=== PATIENT | female | born 1985 | race Two or more races ===

== ENCOUNTER → 2016-04-02 | Outpatient (CLI) | payer MEDICAID ==
[2016-04-02 09:07] LABS: Basophils # (auto) 0 uL; Basophils % (auto) 0.2 % (0.0-2.0); Eosinophils # (auto) 0.1 uL; Eosinophils % (auto) 0.5 % (0.0-7.0); Hematocrit 35.1 % (36.0-46.0); Hemoglobin 11.1 g/dL (12.2-16.2); Lymphocytes # (auto) 2.6 uL; Lymphocytes % (auto) 23.5 % (10.0-50.0); Mean Corpuscular Hemoglobin 27.8 pg (28.0-32.0); Mean Corpuscular Hgb Conc. 31.8 g/dL (32.0-36.0); Mean Corpuscular Volume 87.6 fL (80.0-100.0); Mean Platelet Volume 7.3 fL (7.4-10.4); Monocytes # (auto) 0.4 uL; Monocytes % (auto) 3.9 % (0.0-12.0); Neutrophils # (auto) 7.9 uL; Neutrophils % (auto) 71.9 % (37.0-80.0); Platelet Count (auto) 388 10^3/uL (140-450); Red Cell Distribution Width 16.1 % (11.6-16.0); White Blood Cell 11.1 10^3/uL (4.4-10.8)
== END | disposition home or self-care (01) ==
LOC: LAB 08:35
PROVIDERS: ATTEND Specialist
DX: Z34.80 Encounter for supervision of other normal pregnancy, unspecified trimester (principal); O99.810 Abnormal glucose complicating pregnancy; Z11.3 Encounter for screening for infections with a predominantly sexual mode of transmission; Z31.430 Encounter of female for testing for genetic disease carrier status for procreative management
CPT/HCPCS: 36415; 82951; 83036; 85025; 86703; 86762; 86850; 86900; 86901; 87086; 87340; G0434

== ENCOUNTER 2016-07-05 14:10 | Inpatient (IN) | payer MEDICAID ==
[~2016-07-05] VITALS: Ht 160 cm; Wt 71.7 kg
[2016-07-05] MEDS ORDERED: LACT. RINGERS/OXYTOCIN 20UNITS 1,000 ML IV SCH (15:40)
[2016-07-05] MEDS ORDERED: WITCH HAZEL-GLYCERIN PAD TOP PRN (15:45)
[2016-07-05] MEDS ORDERED: PHISODERM TOP SOLN 240ML BTL TOP PRN (15:45)
[2016-07-05] MEDS ORDERED: LIDOCAINE 2%HCL (LOCAL ANESTH.) INJ 20ML MDV IJ ONE (15:45)
[2016-07-05] MEDS ORDERED: METHYLERGONOVINE MALEATE 0.2 MG/ML AMP IM PRN (15:45)
[2016-07-05] MEDS ORDERED: NALBUPHINE HCL 10 MG/1ml INJECTION IV PRN (15:45)
[2016-07-05] MEDS ORDERED: DERMOPLAST 60ML BOTTLE TOP PRN (15:45)
[2016-07-05] MEDS ORDERED: CARBOPROST TROMETHAMINE 250 MCG/1ML VIAL IM PRN (15:45)
[2016-07-05] MEDS: LACTATED RINGER'S 1,000 ML IV SCH ×2 (16:15→23:40)
[2016-07-05 16:20] LABS: Basophils # (auto) 0 uL; Basophils % (auto) 0.3 % (0.0-2.0); Eosinophils # (auto) 0.1 uL; Eosinophils % (auto) 0.6 % (0.0-7.0); Hematocrit 35.1 % (36.0-46.0); Hemoglobin 11.6 g/dL (12.2-16.2); Lymphocytes # (auto) 2.2 uL; Lymphocytes % (auto) 18.4 % (10.0-50.0); Mean Corpuscular Hgb Conc. 33.1 g/dL (32.0-36.0); Mean Corpuscular Volume 84.8 fL (80.0-100.0); Mean Platelet Volume 7.4 fL (7.4-10.4); Monocytes # (auto) 0.5 uL; Monocytes % (auto) 4.4 % (0.0-12.0); Neutrophils # (auto) 9.3 uL; Neutrophils % (auto) 76.3 % (37.0-80.0); Platelet Count (auto) 366 10^3/uL (140-450); Red Cell Distribution Width 16.2 % (11.6-16.0); White Blood Cell 12.2 10^3/uL (4.4-10.8)
[2016-07-05 16:52] LABS: Albumin 2.6 g/dL (3.4-5.0); BUN/Creatinine Ratio 11.1; Bilirubin, Total 0.4 mg/dL (0.2-1.0); Calcium 8.3 mg/dL (8.5-10.1); Potassium 3.6 mmol/L (3.5-5.1); Total Protein 6.8 g/dL (6.4-8.2)
[2016-07-05 17:09] LABS: Partial Thromboplastin Time 26.4 sec (22.64-33.71); Prothrombin Time 9.6 sec (9.37-12.3)
[2016-07-05 17:12] LABS: INR 0.89 (0.9-1.15)
[2016-07-05 18:19] LABS: Urine Bilirubin Negative (Negative); Urine Blood Negative /uL (Negative); Urine Ca Oxalate Crystal FEW (None Seen); Urine Color Yellow (Yellow); Urine Glucose Normal (Normal); Urine Ketone Negative (Negative); Urine Mucus FEW (None Seen); Urine Nitrite Negative (Negative); Urine RBC 1 /hpf (0 - 4); Urine Squamous Epithelial Cell FEW /hpf (<5); Urine Urobilinogen Normal (Negative); Urine pH 6.5 (5.0-8.0)
[2016-07-05] MEDS ORDERED: IBUPROFEN 600 MG TAB PO ONE (18:23)
[2016-07-05 23:30] VITALS: BP 106/64
[2016-07-06] MEDS ORDERED: IBUPROFEN 600 MG TAB PO ONE (00:28)
[2016-07-06] MEDS ORDERED: ACETAMINOPHEN 325 MG TAB PO PRN (00:45)
[2016-07-06 04:30] VITALS: BP 101/57
[2016-07-06] MEDS: IBUPROFEN 600 MG TAB PO PRN ×3 (05:50→17:02)
[2016-07-06] MEDS: LACTATED RINGER'S 1,000 ML IV SCH ×2 (07:40→15:40)
[2016-07-06 08:00] VITALS: BP 94/50
[2016-07-06 12:00] VITALS: BP 99/63
[2016-07-06 16:00] VITALS: BP 110/63
[2016-07-06 18:30] VITALS: BP 107/59
[2016-07-06 22:30] VITALS: BP 94/51
[2016-07-07 03:30] VITALS: BP 94/50
[2016-07-07 06:39] VITALS: BP 95/51
[2016-07-07 08:41] VITALS: BP 102/59
[2016-07-07 11:20] VITALS: BP 110/65
== END 2016-07-07 11:50 | disposition home or self-care (01) | DRG 560 ==
LOC: OBSVTOIN 14:10 → EDUNIT# 14:10 → LDRP 14:10
PROVIDERS: ADMIT Obstetrics & Gynecology; ATTEND Obstetrics & Gynecology
PROC: 10E0XZZ Delivery of Products of Conception, External Approach (ICD-10-PCS; principal; 2016-07-05)
PROC: 10907ZC Drainage of Amniotic Fluid, Therapeutic from Products of Conception, Via Natural or Artificial Opening (ICD-10-PCS; 2016-07-05)
PROC: 0HQ9XZZ Repair Perineum Skin, External Approach (ICD-10-PCS; 2016-07-05)
DX: O62.3 Precipitate labor (principal); O69.81X0 Labor and delivery complicated by cord around neck, without compression, not applicable or unspecified; O70.0 First degree perineal laceration during delivery; Z37.0 Single live birth; Z3A.40 40 weeks gestation of pregnancy
CPT/HCPCS: 36415; 59025; 59409; 76815; 80053; 81001; 81002; 85025; 85610; 85730; 86850; 86900; 86901; 96361; 96366; J2590

== ENCOUNTER 2021-05-09 09:25 | Emergency (ER) | payer MEDICAID ==
[~2021-05-09] VITALS: Ht 162.6 cm; Wt 73.9 kg
[~2021-05-09 09:25] MED LIST: PREN-96 PO
[2021-05-09 10:41] LABS: Basophils # (auto) 0 10 ^3/uL (0-0.2); Basophils % (auto) 0.2 % (0.0-2.0); Eosinophils # (auto) 0.1 10 ^3/uL (0-0.8); Eosinophils % (auto) 1.1 % (0.0-7.0); Hematocrit 35.1 % (36.0-46.0); Hemoglobin 11.3 g/dL (12.2-16.2); Lymphocytes # (auto) 3.1 10 ^3/uL (0.4-5.4); Mean Corpuscular Hgb Conc. 32.2 g/dL (32.0-36.0); Monocytes # (auto) 0.5 10 ^3/uL (0-1.3); Neutrophils # (auto) 5.4 10 ^3/uL (1.6-8.6); Red Blood Cells 4.71 10^6/uL (4.0-5.20); Red Cell Distribution Width 17.2 % (11.8-14.3)
[2021-05-09 10:43] LABS: Lymphocytes % (auto) 34.3 % (10.0-50.0); Mean Corpuscular Volume 74.5 fL (80.0-100.0); Monocytes % (auto) 5.6 % (0.0-12.0); Neutrophils % (auto) 58.8 % (37.0-80.0); White Blood Cell 9.2 10^3/uL (4.4-10.8)
[2021-05-09 11:28] LABS: Albumin 3.6 g/dL (3.4-5.0); Calcium 8.4 mg/dL (8.5-10.1); Potassium 3.7 mmol/L (3.5-5.1)
[2021-05-09] MEDS ORDERED: ASPirin 81 mg TAB PO ONE (11:30)
[2021-05-09 11:33] LABS: BUN/Creatinine Ratio 12.1; Bilirubin, Total 0.5 mg/dL (0.2-1.0); Total Protein 7.6 g/dL (6.4-8.2)
[2021-05-09 12:51] LABS: Urine Bacteria FEW /hpf (None Seen); Urine Blood Negative /uL (Negative); Urine Specific Gravity 1.005 (1.001-1.035); Urine WBC <1 /hpf (0 - 5)
[2021-05-09 14:17] VITALS: BP 113/76
== END 2021-05-09 15:22 | disposition home or self-care (01) ==
LOC: ER 09:25
DX: R07.89 Other chest pain (principal); F41.9 Anxiety disorder, unspecified; Z79.899 Other long term (current) drug therapy
CPT/HCPCS: 36415; 71045; 80053; 81001; 84484; 85025; 93005

== ENCOUNTER 2021-07-30 13:20 | Emergency (ER) | payer MEDICAID ==
[~2021-07-30] VITALS: Ht 165.1 cm; Wt 73.5 kg
[2021-07-30] MEDS ORDERED: ALPR0.25 PO (14:46)
[2021-07-30 16:26] VITALS: BP 133/71
== END 2021-07-30 16:30 | disposition home or self-care (01) ==
LOC: ER 13:20
DX: R07.89 Other chest pain (principal); F41.9 Anxiety disorder, unspecified
CPT/HCPCS: 71046; 93005

== ENCOUNTER 2021-11-22 19:32 | Emergency (ER) | payer MEDICAID ==
[~2021-11-22] VITALS: Ht 162.6 cm; Wt 72.0 kg
[~2021-11-22 19:32] MED LIST changes: +ALPR0.25 PO
[2021-11-22 20:03] LABS: Basophils # (auto) 0 10 ^3/uL (0-0.2); Eosinophils # (auto) 0.1 10 ^3/uL (0-0.8); Lymphocytes # (auto) 2.8 10 ^3/uL (0.4-5.4); Monocytes # (auto) 0.4 10 ^3/uL (0-1.3); Neutrophils # (auto) 5.1 10 ^3/uL (1.6-8.6)
[2021-11-22 20:04] LABS: Basophils % (auto) 0.3 % (0.0-2.0); Eosinophils % (auto) 1.6 % (0.0-7.0); Hematocrit 34.3 % (36.0-46.0); Lymphocytes % (auto) 33.2 % (10.0-50.0); Mean Corpuscular Hemoglobin 24.1 pg (28.0-32.0); Mean Corpuscular Hgb Conc. 32.1 g/dL (32.0-36.0); Mean Corpuscular Volume 75.2 fL (80.0-100.0); Monocytes % (auto) 4.8 % (0.0-12.0); Neutrophils % (auto) 60.1 % (37.0-80.0); Red Blood Cells 4.56 10^6/uL (4.0-5.20); Red Cell Distribution Width 16.8 % (11.8-14.3); White Blood Cell 8.5 10^3/uL (4.4-10.8)
[2021-11-22 20:27] LABS: Albumin 3.6 g/dL (3.4-5.0); BUN/Creatinine Ratio 16.2; Calcium 8.5 mg/dL (8.5-10.1); Potassium 4.5 mmol/L (3.5-5.1)
[2021-11-22 20:41] LABS: Urine Bacteria NONE SEEN /hpf (None Seen); Urine Blood 3+ /uL (Negative); Urine WBC 1 /hpf (0 - 5)
[2021-11-22 20:48] LABS: Bilirubin, Total 0.3 mg/dL (0.2-1.0); Total Protein 7.2 g/dL (6.4-8.2)
[2021-11-22 20:59] LABS: Alcohol, Urine < 3.0 mg/dL (0-10); Amphetamine Screen, Urine POSITIVE (NEGATIVE); Barbiturate Scree,Urine NEGATIVE (NEGATIVE); Benzodiazephine Screen, Urine NEGATIVE (NEGATIVE); Cannabinoid Screen, Urine NEGATIVE (NEGATIVE); Cocaine Screen, Urine NEGATIVE (NEGATIVE)
[2021-11-22 21:04] LABS: Opiate Scree,Urine NEGATIVE (NEGATIVE); Phencyclidine Screen, Urine NEGATIVE (NEGATIVE)
[2021-11-22] MEDS ORDERED: ALPRAZolam 0.5 MG TAB PO ONE (23:45)
[2021-11-23 07:00] VITALS: BP 142/81
[2021-11-23] MEDS ORDERED: ALPR0.5T PO (07:06)
== END 2021-11-23 07:22 | disposition home or self-care (01) ==
LOC: ER 19:32
DX: R07.89 Other chest pain (principal); Z79.899 Other long term (current) drug therapy
CPT/HCPCS: 36415; 71045; 80053; 80307; 81001; 83880; 84484; 85025; 93005

== ENCOUNTER 2022-10-22 07:33 | Emergency (ER) | payer MEDICAID ==
[~2022-10-22] VITALS: Ht 154.9 cm; Wt 70.3 kg
[~2022-10-22 07:33] MED LIST changes: +ALPR0.5T PO
[2022-10-22 08:11] VITALS: BP 130/76; PULSE 123; RESP 18; TEMP 97.4; O2SAT 95
[2022-10-22 08:11] LABS: Urine Bacteria NONE SEEN /hpf (None Seen); Urine Blood 3+ /uL (Negative); Urine Clarity HAZY (Clear); Urine Color Yellow (Yellow); Urine Mucus FEW (None Seen); Urine Protein, UAD 2+ (Negative); Urine Specific Gravity 1.016 (1.001-1.035); Urine Urobilinogen Normal (Negative); Urine WBC 730 /hpf (0 - 5); Urine WBC Clumps PRESENT /hpf (None Seen)
[2022-10-22] MEDS ORDERED: cefTRIAXone SOD 1,000 MG VL IM ONE (08:45)
[2022-10-22] MEDS ORDERED: CEPH500C PO (08:46)
== END 2022-10-22 08:58 | disposition home or self-care (01) ==
LOC: ER 07:33
DX: N30.90 Cystitis, unspecified without hematuria (principal); F41.9 Anxiety disorder, unspecified
CPT/HCPCS: 81001; 96372; 99283; J0696

== ENCOUNTER 2023-10-14 17:32 | Emergency (ER) | payer MEDICAID ==
[~2023-10-14] VITALS: Ht 160 cm; Wt 80.1 kg
[~2023-10-14 17:32] MED LIST changes: +CEPH500C PO
[2023-10-14 18:50] LABS: Urine Bacteria None Seen /hpf (None Seen)
[2023-10-14 19:12] LABS: Basophils # (auto) 0 10 ^3/uL (0-0.2); Basophils % (auto) 0.2 % (0.0-2.0); Eosinophils # (auto) 0.1 10 ^3/uL (0-0.8); Eosinophils % (auto) 0.6 % (0.0-7.0); Hematocrit 33.9 % (36.0-46.0); Hemoglobin 11.3 g/dL (12.2-16.2); Lymphocytes # (auto) 2.3 10 ^3/uL (0.4-5.4); Lymphocytes % (auto) 19.6 % (10.0-50.0); Mean Corpuscular Hgb Conc. 33.3 g/dL (32.0-36.0); Mean Corpuscular Volume 78.1 fL (80.0-100.0); Monocytes # (auto) 0.6 10 ^3/uL (0-1.3); Monocytes % (auto) 4.8 % (0.0-12.0); Neutrophils # (auto) 8.9 10 ^3/uL (1.6-8.6); Neutrophils % (auto) 74.8 % (37.0-80.0); Red Blood Cells 4.34 10^6/uL (4.0-5.20); Red Cell Distribution Width 16.7 % (11.8-14.3); White Blood Cell 11.8 10^3/uL (4.4-10.8)
[2023-10-14 19:17] LABS: Urine Blood 2+ /uL (Negative); Urine Clarity Clear (Clear); Urine Color Colorless (Yellow); Urine Protein, UAD Negative (Negative); Urine Specific Gravity 1.008 (1.001-1.035); Urine Urobilinogen Normal (Negative); Urine WBC 1 /hpf (0 - 5); Urine pH 6.5 (5.0-9.0)
[2023-10-14 19:22] LABS: Chloride 107 mmol/L (98-107); Potassium 4.2 mmol/L (3.5-5.1); Sodium 137 mmol/L (136-145)
[2023-10-14 19:23] LABS: Anion Gap 6 (5-15); Carbon Dioxide 24 mmol/L (20-30)
[2023-10-14 19:24] LABS: Calcium 9.3 mg/dL (8.7-10.4)
[2023-10-14 19:28] LABS: BUN/Creatinine Ratio 15.2 (10.0-20.0); Blood Urea Nitrogen 10 mg/dL (9-23); Glucose 112 mg/dL (74-106)
[2023-10-14 21:51] VITALS: BP 135/76; PULSE 99; RESP 16; TEMP 98.3; O2SAT 100
== END 2023-10-14 21:55 | disposition home or self-care (01) ==
LOC: ER 17:32
DX: O20.8 Other hemorrhage in early pregnancy (principal); R10.2 Pelvic and perineal pain; Z3A.09 9 weeks gestation of pregnancy
CPT/HCPCS: 36415; 76801; 80048; 81001; 84702; 85025; 86900; 86901

== ENCOUNTER 2024-02-28 07:52 | Observation (INO) | payer MEDICAID ==
--- NOTE | 2024-02-28 14:35 | DVHDS2 ---
Physician Discharge Progress N Final Diagnosis: gdm Operations or Procedures: Operations or Procedures nst,sono Condition on Discharge: Good Disposition: Home Discharge Instructions: Diet: Regular, Consistent carbohydrate Activity: No Restrictions, As Tolerated Medications: na Follow Up Care: Specialist: 2d Discharge Statement: "Patient was advised to return to the ER or call 911 if any headaches, dizziness, shortness of breath, chest pain, abdominal pain, bleeding, fevers, or worsening of medical condition. Patient was counseled about treatment plan, medications, possible side effects, patientverbalized understanding. All questions were answered to the best of my ability. This discharge took greater then 30 minutes in planning, reviewing document ation, counseling the patient, and discussing with other team members." KIMMIE PACK DO Feb 28, 2024 14:35
== END 2024-02-28 09:34 | disposition home or self-care (01) ==
LOC: UNDOADMOB 07:52 → LDRP 07:52
PROVIDERS: ADMIT Obstetrics & Gynecology; ATTEND Obstetrics & Gynecology
DX: O24.419 Gestational diabetes mellitus in pregnancy, unspecified control (principal); O40.3XX0 Polyhydramnios, third trimester, not applicable or unspecified; Z3A.29 29 weeks gestation of pregnancy
CPT/HCPCS: 59025; 81002; 94760; G0378

== ENCOUNTER 2024-03-02 12:31 | Observation (INO) | payer MEDICAID ==
[2024-03-02] MEDS ORDERED: METF-370 PO (12:56)
--- NOTE | 2024-03-03 07:29 | DVHDS2 ---
Physician Discharge Progress N Final Diagnosis: gdm Operations or Procedures: Operations or Procedures nst,sono Condition on Discharge: Good Disposition: Home Discharge Instructions: Diet: Consistent carbohydrate Activity: No Restrictions, As Tolerated Follow Up/Referral: as scheduled Medications: na Follow Up Care: Specialist: 3d Discharge Statement: "Patient was advised to return to the ER or call 911 if any headaches, dizziness, shortness of breath, chest pain, abdominal pain, bleeding, fevers, or worsening of medical condition. Patient was counseled about treatment plan, medications, possible side effects, patientverbalized understanding. All questions were answered to the best of my ability. This discharge took greater then 30 minutes in planning, reviewing documentation, counseling the patient, and discussing with other team members." KIMMIE PACK DO Mar 03, 2024 07:29
== END 2024-03-02 13:21 | disposition home or self-care (01) ==
LOC: LDRP 12:31 → UNDOADMOB 12:31 → LDRP 12:38 → UNDODISOB 13:21
PROVIDERS: ADMIT Obstetrics & Gynecology; ATTEND Obstetrics & Gynecology
DX: O24.419 Gestational diabetes mellitus in pregnancy, unspecified control (principal); Z98.890 Other specified postprocedural states; Z79.899 Other long term (current) drug therapy; Z3A.29 29 weeks gestation of pregnancy
CPT/HCPCS: 59025; 81002; 82948; 82962; 94760; G0378

== ENCOUNTER 2024-03-09 07:42 | Observation (INO) | payer MEDICAID ==
[~2024-03-09 07:42] MED LIST changes: +METF-370 PO
--- NOTE | 2024-03-09 14:41 | DVHDS2 ---
Physician Discharge Progress N Final Diagnosis: Encounter for surveillance Operations or Procedures: Operations or Procedures NST Condition on Discharge: Stable Disposition: Home Discharge Instructions: Diet: Regular Activity: No Restrictions, As Tolerated Follow Up/Referral: As Scheduled Medications: N/A Follow Up Care: Discharge Statement: "Patient was advised to return to the ER or call 911 if any headaches, dizziness, shortness of breath, chest pain, abdominal pain, bleeding, fevers, or worsening of medical condition. Patient was counseled about treatment plan, medications, possible side effects, patientverbalized understanding. All questions were answered to the best of my ability. This discharge took greater then 30 minutes in planning, reviewing documentation, counseling the patient, and discussing with other team members." DANO QUEZADA DO Mar 09, 2024 14:41
== END 2024-03-09 14:23 | disposition home or self-care (01) ==
LOC: LDRP 12:31 → UNDOADMOB 12:31 → LDRP 12:59 → UNDODISOB 14:23
PROVIDERS: ADMIT Obstetrics & Gynecology; ATTEND Obstetrics & Gynecology
DX: O24.419 Gestational diabetes mellitus in pregnancy, unspecified control (principal); Z98.890 Other specified postprocedural states; Z79.899 Other long term (current) drug therapy; Z3A.30 30 weeks gestation of pregnancy
CPT/HCPCS: 59025; 81002; 82948; G0378; 82962

== ENCOUNTER 2024-03-12 11:47 | Observation (INO) | payer MEDICAID ==
--- NOTE | 2024-03-13 16:10 | DVHDS2 ---
Physician Discharge Progress N Final Diagnosis: gdm Operations or Procedures: Operations or Procedures nst,sono Condition on Discharge: Good Disposition: Home Discharge Instructions: Diet: Regular Activity: No Restrictions, As Tolerated Medications: na Follow Up Care: Specialist: 3d Discharge Statement: "Patient was advised to return to the ER or call 911 if any headaches, dizziness, shortness of breath, chest pain, abdominal pain, bleeding, fevers, or worsening of medical condition. Patient was counseled about treatment plan, medications, possible side effects, patientverbalized understanding. All questions were answered to the best of my ability. This discharge took greater then 30 minutes in planning, reviewing documentation, counseling the patient, and discussing with other team members." KIMMIE PACK DO Mar 13, 2024 16:10
== END 2024-03-12 13:16 | disposition home or self-care (01) ==
LOC: UNDOADMOB 11:47 → LDRP 11:47 → UNDODISOB 13:16
PROVIDERS: ADMIT Obstetrics & Gynecology; ATTEND Obstetrics & Gynecology
DX: O24.419 Gestational diabetes mellitus in pregnancy, unspecified control (principal); Z3A.31 31 weeks gestation of pregnancy; Z79.899 Other long term (current) drug therapy
CPT/HCPCS: 59025; 81002; 82948; 82962; 94760; G0378

== ENCOUNTER 2024-03-16 11:45 | Observation (INO) | payer MEDICAID | END 2024-03-16 13:20 | disposition home or self-care (01) | LOC: LDRP 11:45 | PROVIDERS: ADMIT Obstetrics & Gynecology; ATTEND Obstetrics & Gynecology | DX: O24.419 Gestational diabetes mellitus in pregnancy, unspecified control (principal); Z3A.31 31 weeks gestation of pregnancy; Z79.899 Other long term (current) drug therapy; Z98.890 Other specified postprocedural states | CPT/HCPCS: 59025; 81002; 82948; 82962; 94760; G0378 ==

== ENCOUNTER 2024-03-20 08:40 | Observation (INO) | payer MEDICAID ==
--- NOTE | 2024-03-20 09:59 | DVH ---
Procedure: US BIOPHYSICAL PROFILE 03/20/2024 09:34 AM Indication: GDMA2 Comparison: None Technique: Sonogram of gravid uterus utilizing grayscale and color techniques. FINDINGS: Single living intrauterine gestation. Presentation: Cephalic Placenta: Anterior heart rate: 138 bpm KRISTIN: 29.6 cm Maternal cervix: Not visualized Biophysical Profile: breathing score: 2 movement score: 2 tone: 2 Quantitative KRISTIN score: 2 Total score: 8/8 IMPRESSION: 1. Single living as above. 2. Biophysical profile score: 8/8. 3. Polyhydramnios with KRISTIN of 29.6 cm.
--- NOTE | 2024-03-20 12:42 | DVHDS2 ---
Physician Discharge Progress N Final Diagnosis: gdm Operations or Procedures: Operations or Procedures nst,sono Condition on Discharge: Good Disposition: Home Discharge Instructions: Diet: Consistent carbohydrate Activity: No Restrictions, As Tolerated Medications: na Follow Up Care: Specialist: 4days Discharge Statement: "Patient was advised to return to the ER or call 911 if any headaches, dizziness, shortness of breath, chest pain, abdominal pain, bleeding, fevers, or worsening of medical condition. Patient was counseled about treatment plan, medications, possible side effects, patientverbalized understanding. All questions were answered to the best of my ability. This discharge took greater then 30 minutes in planning, reviewing documentation, counseling the patient, and discussing with other team members." KIMMIE PACK DO Mar 20, 2024 12:42
== END 2024-03-20 10:10 | disposition home or self-care (01) ==
LOC: LDRP 08:40
PROVIDERS: ADMIT Obstetrics & Gynecology; ATTEND Obstetrics & Gynecology
DX: O24.419 Gestational diabetes mellitus in pregnancy, unspecified control (principal); Z3A.31 31 weeks gestation of pregnancy; Z79.899 Other long term (current) drug therapy
CPT/HCPCS: 59025; 76818; 81002; 82948; 94760; G0378

== ENCOUNTER 2024-03-24 09:36 | Observation (INO) | payer MEDICAID ==
--- NOTE | 2024-03-24 11:41 | DVH ---
Procedure: US BIOPHYSICAL PROFILE 03/24/2024 09:56 AM Indication: GDMA2 Comparison: US BIOPHYSICAL PROFILE on DOS: 03/20/24 Technique: Sonogram of gravid uterus utilizing grayscale and color techniques. FINDINGS: Single living intrauterine gestation. Presentation: Cephalic Placenta: Anterior heart rate: 130 bpm KRISTIN: 26.1 cm, DVP: 8 cm Maternal cervix: Not visualized Biophysical Profile: breathing score: 2 movement score: 2 tone: 2 Quantitative KRISTIN score: 2 Total score: 8/8 IMPRESSION: 1. Single living as above. 2. Biophysical profile score: 8/8. 3. Polyhydramnios with KRISTIN of 26.1 cm. KRISTIN was measured twice .
--- NOTE | 2024-03-24 19:00 | DVHDS2 ---
Physician Discharge Progress N Final Diagnosis: testing for GDM, A2 and polyhydramnios Operations or Procedures: Operations or Procedures 38yo IUP@32.5wks VSS NST reactive (verified by 2 RNs) FKC/PTL precautions reviewed Other Interventions Other Interventions [address] [address] Ph: [phone] DIAGNOSTIC IMAGING Diagnostic Imaging Report : [id number] Signed PATIENT: KARISSA DELCID ACCT: [id number] UNIT: [id number] : 1985 LOC: [facility] ROOM / BED: TRIAGE3 / A AGE / SEX: 38 / F ADM STATUS: DIS IN SERVICE 0939 ORDERING PHYSICIAN: SETH TINOCO CNM PROCEDURE(s): BPP - BIOPHYSICAL PROFILE REASON: GDMA2 ORDER NUMBER(s): [id number], ACCESSION NUMBER(s): [id number] Procedure: US BIOPHYSICAL PROFILE 03/24/2024 09:56 AM Indication: GDMA2 Comparison: US BIOPHYSICAL PROFILE on DOS: 03/20/24 Technique: Sonogram of gravid uterus utilizing grayscale and color techniques. FINDINGS: Single living intrauterine gestation. Presentation: Cephalic Placenta: Anterior heart rate: 130 bpm KRISTIN: 26.1 cm, DVP: 8 cm Maternal cervix: Not visualized Biophysical Profile: breathing score: 2 movement score: 2 tone: 2 Quantitative KRISTIN score: 2 Total score: 8/8 IMPRESSION: 1. Single living as above. 2. Biophysical profile score: 8/8. 3. Polyhydramnios with KRISTIN of 26.1 cm. KRISTIN was measured twice . ATED BY: KARLEE PETTY MD DICTATED DATE/TIME: 03/24/24 1138 SIGNED BY: KARLEE PETTY MD Condition on Discharge: Stable Disposition: Home Discharge Instructions: Diet: Consistent carbohydrate Activity: No Restrictions, As Tolerated Medications: see med list Follow Up Care: Specialist: f/u in 3 days Discharge Statement: "Patient was advised to return to the ER or call 911 if any headaches, dizziness, shortness of breath, chest pain, abdominal pain, bleeding, fevers, or worsening of medical condition. Patient was counseled about treatment plan, medications, possible side effects, patientverbalized understanding. All questions were answered to the best of my ability. This discharge took greater then 30 minutes in planning, reviewing documentation, counseling the patient, and discussing with other team members." SETH TINOCO CNM Mar 24, 2024 19:00
== END 2024-03-24 10:45 | disposition home or self-care (01) ==
LOC: UNDOADMOB 09:36 → LDRP 09:36 → UNDODISOB 10:45
PROVIDERS: ADMIT Obstetrics & Gynecology; ATTEND Obstetrics & Gynecology
DX: O40.3XX0 Polyhydramnios, third trimester, not applicable or unspecified (principal); O24.419 Gestational diabetes mellitus in pregnancy, unspecified control; Z98.890 Other specified postprocedural states; Z79.899 Other long term (current) drug therapy; Z3A.32 32 weeks gestation of pregnancy
CPT/HCPCS: 59025; 76818; 81002; 82948; 82962; 94760; G0378

== ENCOUNTER 2024-03-26 08:13 | Observation (INO) | payer MEDICAID ==
--- NOTE | 2024-03-26 09:15 | DVH ---
Procedure: US BIOPHYSICAL PROFILE 03/26/2024 08:37 AM Indication: GDMA2 Comparison: US BIOPHYSICAL PROFILE on DOS: 03/24/24, US BIOPHYSICAL PROFILE on DOS: 03/20/24 Technique: Sonogram of gravid uterus utilizing grayscale and color techniques. FINDINGS: Single living intrauterine gestation. Presentation: Cephalic Placenta: Anterior heart rate: 131 bpm KRISTIN: 19.5 cm, DVP: 8.8 cm Maternal cervix: Not visualized Biophysical Profile: breathing score: 2 movement score: 2 tone: 2 Quantitative KRISTIN score: 2 Total score: 8/8 IMPRESSION: 1. Single living as above. 2. Biophysical profile score: 8/8.
--- NOTE | 2024-03-26 18:09 | DVHDS2 ---
Physician Discharge Progress N Final Diagnosis: gdm Operations or Procedures: Operations or Procedures nst,sono Condition on Discharge: Good Disposition: Home Discharge Instructions: Diet: Regular, Consistent carbohydrate Activity: No Restrictions, As Tolerated Medications: na Follow Up Care: Specialist: 3d Discharge Statement: "Patient was advised to return to the ER or call 911 if any headaches, dizziness, shortness of breath, chest pain, abdominal pain, bleeding, fevers, or worsening of medical condition. Patient was counseled about treatment plan, medications, possible side effects, patientverbalized understanding. All questions were answered to the best of my ability. This discharge took greater then 30 minutes in planning, reviewing document ation, counseling the patient, and discussing with other team members." KIMMIE PACK DO Mar 26, 2024 18:09
== END 2024-03-26 09:57 | disposition home or self-care (01) ==
LOC: LDRP 08:13
PROVIDERS: ADMIT Obstetrics & Gynecology; ATTEND Obstetrics & Gynecology
DX: O24.419 Gestational diabetes mellitus in pregnancy, unspecified control (principal); Z3A.32 32 weeks gestation of pregnancy; Z79.899 Other long term (current) drug therapy
CPT/HCPCS: 59025; 76818; 81002; 82948; 82962; G0378

== ENCOUNTER 2024-03-30 08:55 | Observation (INO) | payer MEDICAID ==
--- NOTE | 2024-03-30 10:21 | DVH ---
BIOPHYSICAL PROFILE HISTORY: GDMA2 Comparison Study: 03/26/2024 TECHNIQUE: Multiple real-time grayscale sonographic images through the gravid uterus of the fetus wi th duplex Doppler color flow and M-mode spectral analysis FINDINGS: BIOPHYSICAL PROFILE: breathing score: 2 movement score: 2 tone score: 2 Quantitative KRISTIN score: 2 (KRISTIN: 19.7 Cm.) Total score: 8 The cervix is not visualized Single live fetus in cephalic presentation. heart rate 138 beats per minute. Anterior placenta without previa or abruption IMPRESSION: Biophysical profile score: 8/8
--- NOTE | 2024-03-31 15:14 | DVHDS2 ---
Physician Discharge Progress N Final Diagnosis: gdm Operations or Procedures: Operations or Procedures nst,sono Condition on Discharge: Good Disposition: Home Discharge Instructions: Diet: Consistent carbohydrate Activity: No Restrictions, As Tolerated Medications: na Follow Up Care: Specialist: 3d Discharge Statement: "Patient was advised to return to the ER or call 911 if any headaches, dizziness, shortness of breath, chest pain, abdominal pain, bleeding, fevers, or worsening of medical condition. Patient was counseled about treatment plan, medications, possible side effects, patientverbalized understanding. All questions were answered to the best of my ability. This discharge took greater then 30 minutes in planning, reviewing documentation, counseling the patient, and discussing with other team members." KIMMIE PACK DO Mar 31, 2024 15:14
== END 2024-03-30 10:24 | disposition home or self-care (01) ==
LOC: UNDOADMOB 08:55 → LDRP 08:55 → UNDODISOB 10:24
PROVIDERS: ADMIT Obstetrics & Gynecology; ATTEND Obstetrics & Gynecology
DX: O24.419 Gestational diabetes mellitus in pregnancy, unspecified control (principal); Z98.890 Other specified postprocedural states; Z79.899 Other long term (current) drug therapy; Z3A.33 33 weeks gestation of pregnancy
CPT/HCPCS: 59025; 76818; 81002; 82948; 82962; 94760; G0378

== ENCOUNTER 2024-04-02 08:13 | Observation (INO) | payer MEDICAID ==
--- NOTE | 2024-04-02 09:23 | DVH ---
BIOPHYSICAL PROFILE HISTORY: GDMA2 Comparison Study: 03/30/2024 TECHNIQUE: Multiple real-time grayscale sonographic images through the gravid uterus of the fetus wi th duplex Doppler color flow and M-mode spectral analysis FINDINGS: BIOPHYSICAL PROFILE: breathing score: 2 movement score: 2 tone score: 2 Quantitative KRISTIN score: 2 (KRISTIN: 22.4 Cm.) Total score: 8 The cervix measures 3.2 cm. Single live fetus in cephalic presentation. heart rate 136 beats per minute. Anterior placenta without previa or abruption IMPRESSION: Biophysical profile score: 8 KRISTIN measures 22.4 cm, top-normal.
--- NOTE | 2024-04-03 12:50 | DVHDS2 ---
Physician Discharge Progress N Final Diagnosis: gdm Operations or Procedures: Operations or Procedures nst,sono Condition on Discharge: Good Disposition: Home Discharge Instructions: Diet: Consistent carbohydrate Activity: No Restrictions, As Tolerated Medications: na Follow Up Care: Specialist: 2d Discharge Statement: "Patient was advised to return to the ER or call 911 if any headaches, dizziness, shortness of breath, chest pain, abdominal pain, bleeding, fevers, or worsening of medical condition. Patient was counseled about treatment plan, medications, possible side effects, patientverbalized understanding. All questions were answered to the best of my ability. This discharge took greater then 30 minutes in planning, reviewing documentation, counseling the patient, and discussing with other team members." KIMMIE PACK DO Apr 03, 2024 12:50
== END 2024-04-02 10:08 | disposition home or self-care (01) ==
LOC: LDRP 08:13
PROVIDERS: ADMIT Obstetrics & Gynecology; ATTEND Obstetrics & Gynecology
DX: O24.419 Gestational diabetes mellitus in pregnancy, unspecified control (principal); Z3A.33 33 weeks gestation of pregnancy; Z79.899 Other long term (current) drug therapy; Z98.890 Other specified postprocedural states
CPT/HCPCS: 59025; 76818; 81002; 82948; 82962; 94760; G0378

== ENCOUNTER 2024-04-06 06:42 | Observation (INO) | payer MEDICAID ==
[~2024-04-06 06:42] MED LIST changes: -ALPR0.25 PO; -ALPR0.5T PO; -CEPH500C PO
--- NOTE | 2024-04-06 09:20 | DVH ---
CLINICAL HISTORY: Gestational diabetes. COMPARISON: US BIOPHYSICAL PROFILE on DOS: 04/02/24, US BIOPHYSICAL PROFILE on DOS: 03/30/24, US BIOPHY SICAL PROFILE on DOS: 03/26/24 TECHNIQUE: biophysical profile was performed. Transabdominal sonographic images of the fetus we re obtained. FINDINGS: The fetus is in transverseposition, with head to the maternal right. heart rate measu res 137 BPM. Amniotic fluid index measures 22 cm. The placenta is anterior in position. BPP profile is an overall score of 8/8, with 2/2 points for breathing, with at least one episode of breathing over a 30 second duration during a 30 minute observation, 2/2 points for m ovements, with 3 or more discrete body or limb movements, 2/2 points for tone, with one or more episodes of extremity extension with return to flexion, or opening and closing of hand, and 2/ 2 points for amniotic fluid, with at least 1 pocket of amniotic fluid that measures 2 cm in 2 perpend icular planes. IMPRESSION: 1. BPP score of 8/8. 2. Transverse orientation, with head to the maternal right. 3. Amniotic fluid index is 22.
--- NOTE | 2024-04-06 21:11 | DVHDS2 ---
Discharge Summary Date of Admission Apr 06, 2024 at 07:55 Date of Discharge: Apr 06, 2024 Admitting Diagnosis GDM Labs/Diagnostic Data: Laboratory Results Test 04/06/24 09:12 POC Glucose 85 mg/dl (70-106) Brief Hx & Hospital Course: surveillance reassuring Operations or Procedures NST/BPP/KRISTIN Accucheck Condition at Discharge: Stable Final Diagnosis/Problems List Gestational Diabetes Advanced maternal age Polyhydramnios Secondary Diagnosis: Encounter for surveillance Discharge Disposition: Home Discharge Instruct/Medications Diet: Consistent carbohydrate Activity: No Restrictions, As Tolerated Follow Up/Referral: as scheduled. Medications: N/A Discharge Statement: "Patient was advised to return to the ER or call 911 if any headaches, dizziness, shortness of breath, chest pain, abdominal pain, bleeding, fevers, or worsening of medical condition. Patient was counseled about treatment plan, medications, possible side effects, patientverbalized understanding. All questions were answered to the best of my ability. This discharge took greater then 30 minutes in planning, reviewing documen tation, counseling the patient, and discussing with other team members." ASSESSMENT ASSESSMENT Assessment Visit Coding OBGYN Date of Service: Apr 06, 2024 Billing Provider: DANO QUEZADA DO SECURITY EXPERT Common Visit Codes: 01481-[id number] OBS CARE (LOW) SECURITY EXPERT Procedure Codes: 97718-37- NON-STRESS TEST DANO QUEZADA DO Apr 06, 2024 21:11
[2024-04-14] MEDS ORDERED: NIFE10CA52 PO ×2 (13:44)
== END 2024-04-06 09:55 | disposition home or self-care (01) ==
LOC: LDRP 07:55
PROVIDERS: ADMIT Obstetrics & Gynecology; ATTEND Obstetrics & Gynecology
DX: O40.3XX0 Polyhydramnios, third trimester, not applicable or unspecified (principal); O24.419 Gestational diabetes mellitus in pregnancy, unspecified control; O09.513 Supervision of elderly primigravida, third trimester; Z98.890 Other specified postprocedural states; Z79.899 Other long term (current) drug therapy; Z3A.34 34 weeks gestation of pregnancy
CPT/HCPCS: 59025; 76818; 81002; 82948; 82962; 94760; G0378

== ENCOUNTER 2024-04-10 12:45 | Observation (INO) | payer MEDICAID ==
--- NOTE | 2024-04-10 14:25 | DVH ---
BIOPHYSICAL PROFILE HISTORY: GDMA2 TECHNIQUE: Multiple transabdominal real-time grayscale sonographic images through the gravid uterus of the fetus with duplex Doppler color flow and M-mode spectral analysis FINDINGS: BIOPHYSICAL PROFILE: breathing score: 2 movement score: 2 tone score: 2 Quantitative KRISTIN score: 2 (KRISTIN: 25.7 Cm.) Total score: 8 The cervix was not seen IMPRESSION: Biophysical profile score: 8/8
--- NOTE | 2024-04-10 15:25 | DVHDS2 ---
Physician Discharge Progress N Final Diagnosis: GDMA2 Polyhydramnios Secondary Diagnosis: Encounter for surveillance Operations or Procedures: Operations or Procedures NST BPP KRISTIN Condition on Discharge: Stable Disposition: Home Discharge Instructions: Diet: Consistent carbohydrate Activity: Light activity Follow Up/Referral: as scheduled Medications: N/A Follow Up Care: Discharge Statement: "Patient was advised to return to the ER or call 911 if any headaches, dizzine ss, shortness of breath, chest pain, abdominal pain, bleeding, fevers, or worsening of medical condition. Patient was counseled about treatment plan, medications, possible side effects, patientverbalized understanding. All questions were answered to the best of my ability. This discharge took greater then 30 minutes in planning, reviewing documentation, counseling the patient, and discussing with other team members." Visit Coding OBGYN Date of Service: Apr 10, 2024 Billing Provider: DANO QUEZADA DO ADMINISTRATIVE SALES ASSISTANT Common Visit Codes: 02861-GII/OBS SAME DATE (MOD) ADMINISTRATIVE SALES ASSISTANT Procedure Codes: 27299-51- NON-STRESS TEST DANO QUEZADA DO Apr 10, 2024 15:25
== END 2024-04-10 14:26 | disposition home or self-care (01) ==
LOC: LDRP 12:45
PROVIDERS: ADMIT Obstetrics & Gynecology; ATTEND Obstetrics & Gynecology
DX: O40.3XX0 Polyhydramnios, third trimester, not applicable or unspecified (principal); O24.419 Gestational diabetes mellitus in pregnancy, unspecified control; Z3A.34 34 weeks gestation of pregnancy; Z79.899 Other long term (current) drug therapy; Z98.890 Other specified postprocedural states
CPT/HCPCS: 59025; 76818; 81002; 82948; 82962; 94760; G0378

== ENCOUNTER 2024-04-14 11:46 | Observation (INO) | payer MEDICAID ==
[~2024-04-14] VITALS: Ht 154.9 cm; Wt 95.3 kg
--- NOTE | 2024-04-14 12:44 | DVH ---
CLINICAL HISTORY: Gestational diabetes. COMPARISON: BPP exam dated 04/10/2024. TECHNIQUE: biophysical profile was performed. Transabdominal sonographic images of the fetus we re obtained. FINDINGS: The fetus is in cephalic position. heart rate measures 133 BPM. Amniotic fluid index measures 24.2 cm. The placenta is anterior in position. No evidence of placenta previa or abruption. BPP profile is an overall score of 8/8, with 2/2 points for breathing, with at least one episode of breathing over a 30 second duration during a 30 minute observation, 2/2 points for m ovements, with 3 or more discrete body or limb movements, 2/2 points for tone, with one or more episodes of extremity extension with return to flexion, or opening and closing of hand, and 2/ 2 points for amniotic fluid, with at least 1 pocket of amniotic fluid that measures 2 cm in 2 perpend icular planes. IMPRESSION: 1. BPP score of 8/8. 2. Amniotic fluid index of 24.2
[2024-04-14] MEDS: TERBUTALINE SULFATE 1 MG/ML 1ML VIAL SC SCH (13:26)
[2024-04-14] MEDS ORDERED: NIFE10CA52 PO (13:44)
--- NOTE | 2024-04-14 20:35 | DVHDS2 ---
Physician Discharge Progress N Final Diagnosis: testing for GDM, A2 Operations or Procedures: Operations or Procedures 38yo IUP@35.3wks, +FM, reports feeling some UCs, denies VB/LOF VSS NST reactive TOCO: irregular UCs noted then none before D/C SVE by RN: //high Dr. Jackman consulted, terbutaline SQ ordered adn procardia rx sent for home to take until 36 weeks. FKC/PTL precautions reviewed Other Interventions Other Interventions [place] [address] Ph: [phone] DIAGNOSTIC IMAGING Diagnostic Imaging Report : [id number] Signed PATIENT: KARISSA DELCID ACCT: [id number] UNIT: [id number] : 1985 LOC: [facility] ROOM / BED: [facility] / AGE / SEX: 38 / F ADM STATUS: ADM IN SERVICE 1158 ORDERING PHYSICIAN: SETH TINOCO CNM PROCEDURE(s): BPP - BIOPHYSICAL PROFILE REASON: GDMA2 ORDER NUMBER(s): [id number], ACCESSION NUMBER(s): [id number] CLINICAL HISTORY: Gestational diabetes. COMPARISON: BPP exam dated 04/10/2024. TECHNIQUE: biophysical profile was performed. Transabdominal sonographic images of the fetus were obtained. FINDINGS: The fetus is in cephalic position. heart rate measures 133 BPM. Amniotic fluid index measures 24.2 cm. The placenta is anterior in position. No evidence of placenta previa or abruption. BPP profile is an overall score of 8/8, with 2/2 points for breathing, with at least one episode of breathing over a 30 second duration during a 30 minute observation, 2/2 points for movements, with 3 or more discrete body or limb movements, 2/2 points for tone, with one or more epi sodes of extremity extension with return to flexion, or opening and closing of hand, and 2/2 points for amniotic fluid, with at least 1 pocket of amniotic fluid that measures 2 cm in 2 perpendicular planes. IMPRESSION: 1. BPP score of 8/8. 2. Amniotic fluid index of 24.2 ATED BY: JAMIL HAYNES DO DICTATED DATE/TIME: 04/14/241241 SIGNED BY: JAMIL HAYNES DO SIGNED DATE/TIME: 04/14/24 124 CC: Condition on Discharge: Stable Disposition: Home Discharge Instructions: Diet: Consistent carbohydrate Activity: No Restrictions, As Tolerated Medications: see med list Follow Up Care: Specialist: f/u in 3 days Discharge Statement: "Patient was advised to return to the ER or call 911 if any headaches, dizziness, shortness of breath, chest pain, abdominal pain, bleeding, fevers, or worsening of medical condition. Patient was counseled about treatment plan, medications, possible side effects, patientverbalized understanding. All questions were answered to the best of my ability. This discharge took greater then 30 minutes in planning, reviewing documentation, counseling the patient, and discussing with other team members." Visit Coding OBGYN Date of Service: Apr 14, 2024 Billing Provider: SETH TINOCO CNM VOICE PATHOLOGIST Common Visit Codes: 06529-[id number] OBS CARE (HIGH) SETH TINOCO CNM Apr 14, 2024 20:35
== END 2024-04-14 14:16 | disposition home or self-care (01) ==
LOC: LDRP 11:46 → UNDOADMOB 11:46 → LDRP 11:59 → UNDODISOB 14:16
PROVIDERS: ADMIT Obstetrics & Gynecology; ATTEND Obstetrics & Gynecology
DX: O24.419 Gestational diabetes mellitus in pregnancy, unspecified control (principal); Z3A.25 25 weeks gestation of pregnancy; Z79.899 Other long term (current) drug therapy; Z98.890 Other specified postprocedural states
CPT/HCPCS: 59025; 76818; 81002; 82948; 82962; 94760; 96372; G0378; J3105

== ENCOUNTER 2024-04-17 06:57 | Observation (INO) | payer MEDICAID ==
[~2024-04-17 06:57] MED LIST changes: +NIFE10CA52 PO
--- NOTE | 2024-04-17 11:40 | DVH ---
BIOPHYSICAL PROFILE HISTORY: GDMA2 Comparison Study: none TECHNIQUE: Multiple real-time grayscale sonographic images through the gravid uterus of the fetus wi th duplex Doppler color flow and M-mode spectral analysis FINDINGS: BIOPHYSICAL PROFILE: breathing score: 2 movement score: 2 tone score: 2 Quantitative KRISTIN score: 2 (KRISTIN: 24.1 Cm.) Total score: 8 The cervix is not visualized. Single live fetus in cephalic presentation. heart rate 136 beats per minute. Anterior placenta without previa or abruption IMPRESSION: Biophysical profile score: 8 KRISTIN, 24.1 cm.
--- NOTE | 2024-04-17 13:49 | DVHDS2 ---
Physician Discharge Progress N Final Diagnosis: gdm Operations or Procedures: Operations or Procedures nst,sono 35wks Condition on Discharge: Good Disposition: Home Discharge Instructions: Diet: Consistent carbohydrate Activity: No Restrictions, As Tolerated Medications: na Follow Up Care: Specialist: 3d Discharge Statement: "Patient was advised to return to the ER or call 911 if any headaches, dizziness, shortness of breath, chest pain, abdominal pain, bleeding, fevers, or worsening of medical condition. Patient was counseled about treatment plan, medications, possible side effects, patientverbalized understanding. All questions were answered to the best of my ability. This discharge took greater then 30 minutes in planning, reviewing documentati on, counseling the patient, and discussing with other team members." Visit Coding OBGYN Date of Service: Apr 17, 2024 Billing Provider: KIMMIE PACK DO MANAGER QUALITY COMPLIANCE Common Visit Codes: [id number] INP/OBS CARE(HIGH) MANAGER QUALITY COMPLIANCE Procedure Codes: 23117-34- NON-STRESS TEST KIMMIE PACK DO Apr 17, 2024 13:49
== END 2024-04-17 12:31 | disposition home or self-care (01) ==
LOC: UNDOADMOB 11:02 → LDRP 11:02 → UNDODISOB 12:31
PROVIDERS: ADMIT Obstetrics & Gynecology; ATTEND Obstetrics & Gynecology
DX: O24.419 Gestational diabetes mellitus in pregnancy, unspecified control (principal); Z3A.35 35 weeks gestation of pregnancy; Z79.899 Other long term (current) drug therapy; Z98.890 Other specified postprocedural states
CPT/HCPCS: 59025; 76818; 81002; 82948; 82962; 94760; G0378

== ENCOUNTER 2024-04-21 10:30 | Observation (INO) | payer MEDICAID ==
[~2024-04-21 10:30] MED LIST changes: +ALPR0.25 PO; +ALPR0.5T PO; +CEPH500C PO
--- NOTE | 2024-04-21 11:52 | DVH ---
Procedure: US BIOPHYSICAL PROFILE 04/21/2024 11:23 AM Indication: GDMA2 Comparison: US BIOPHYSICAL PROFILE on DOS: 04/17/24, US BIOPHYSICAL PROFILE on DOS: 04/14/24, US BIOPHY SICAL PROFILE on DOS: 04/10/24 Technique: Sonogram of gravid uterus utilizing grayscale and color techniques. FINDINGS: Single living intrauterine gestation. Presentation: Cephalic Placenta: Anterior heart rate: 117 bpm KRISTIN: 25.4 cm, DVP: 8.2 cm Maternal cervix: Not visualized Biophysical Profile: breathing score: 2 movement score: 2 tone: 2 Quantitative KRISTIN score: 2 Total score: 8/8 IMPRESSION: 1. Single living as above. 2. Biophysical profile score: 8/8. 3. Borderline polyhydramnios.
--- NOTE | 2024-04-21 19:42 | DVHDS2 ---
Physician Discharge Progress N Final Diagnosis: testing for GDM, A2 and polyhydramnios Operations or Procedures: Operations or Procedures 38yo IUP@36.3wks, +FM, denies UCs/LOF/VB VSS NST reactive FKC/PTL precautions reviewed Other Interventions Other Interventions [address] [address] Ph: [phone] DIAGNOSTIC IMAGING Diagnostic Imaging Report : [id number] Signed PATIENT: KARISSA DELCID ACCT: [id number] UNIT: [id number] : 1985 LOC: LD ROOM / BED: [facility] / A AGE / SEX: 38 / F ADM STATUS: ADM IN SERVICE 1038 ORDERING PHYSICIAN: SETH TINOCO CNM PROCEDURE(s): BPP - BIOPHYSICAL PROFILE REASON: GDMA2 ORDER NUMBER(s): [id number], ACCESSION NUMBER(s): [id number] Procedure: US BIOPHYSICAL PROFILE 04/21/2024 11:23 AM Indication: GDMA2 Comparison: US BIOPHYSICAL PROFILE on DOS: 04/17/24, US BIOPHYSICAL PROFILE on DOS: 04/14/24, US BIOPHYSICAL PROFILE on DOS: 04/10/24 Technique: Sonogram of gravid uterus utilizing grayscale and color techniques. FINDINGS: Single living intrauterine gestation. Presentation: Cephalic Placenta: Anterior heart rate: 117 bpm KRISTIN: 25.4 cm, DVP: 8.2 cm Maternal cervix: Not visualized Biophysical Profile: breathing score: 2 movement score: 2 tone: 2 Quantitative KRISTIN score: 2 Total score: 8/8 IMPRESSION: 1. Single living as above. 2. Biophysical profile score: 8/8. 3. Borderline polyhydramnios. ATED BY: KARLEE PETTY MD DICTATED DATE/TIME: 04/21/24 1150 SIGNED BY: KARLEE PETTY MD SIGNED DATE/TIME: 04/21/24 1150 CC: Condition on Discharge: Stable Disposition: Home Discharge Instructions: Diet: Consistent carbohydrate Activity: No Restrictions, As Tolerated Follow Up/Referral: as scheduled Medications: see med list Follow Up Care: Specialist: f/u in 3 days Discharge Statement: "Patient was advised to return to the ER or call 911 if any headaches, dizziness, shortness of breath, chest pain, abdominal pain, bleeding, fevers, or worsening of medical condition. Patient was counseled about treatment plan, medications, possible side effects, patientverbalized understanding. All questions were answered to the best of my ability. This discharge took greater then 30 minutes in planning, reviewing documentation, counseling the patient, and discussing with other team members." Visit Coding OBGYN Date of Service: Apr 21, 2024 Billing Provider: SETH TINOCO CNM BOOK REPAIRER Common Visit Codes: 99293-[id number] OBS CARE (HIGH) BOOK REPAIRER Procedure Codes: 45542-98- NON-STRESS TEST SETH TINOCO CNM Apr 21, 2024 19:42
== END 2024-04-21 11:43 | disposition home or self-care (01) ==
LOC: LDRP 10:30 → UNDOADMOB 10:30 → LDRP 10:40 → UNDODISOB 11:43
PROVIDERS: ADMIT Obstetrics & Gynecology; ATTEND Obstetrics & Gynecology
DX: O40.3XX0 Polyhydramnios, third trimester, not applicable or unspecified (principal); O24.419 Gestational diabetes mellitus in pregnancy, unspecified control; Z98.890 Other specified postprocedural states; Z79.899 Other long term (current) drug therapy; Z3A.36 36 weeks gestation of pregnancy
CPT/HCPCS: 76818; 82962; G0378; 59025; 81002; 82948; 94760

== ENCOUNTER 2024-04-24 07:17 | Observation (INO) | payer MEDICAID ==
[~2024-04-24 07:17] MED LIST changes: -ALPR0.25 PO; -ALPR0.5T PO; -CEPH500C PO
--- NOTE | 2024-04-24 11:45 | DVH ---
BIOPHYSICAL PROFILE HISTORY: GDMA2 TECHNIQUE: Multiple transabdominal real-time grayscale sonographic images through the gravid uterus of the fetus with duplex Doppler color flow and M-mode spectral analysis FINDINGS: BIOPHYSICAL PROFILE: breathing score: 2 movement score: 2 tone score: 2 Quantitative KRISTIN score: 2 (KRISTIN: 22.5 Cm.) Total score: 8 The cervix is not visualized. Single live fetus in cephalic presentation. heart rate 128 beats per minute. Anterior placenta without previa or abruption IMPRESSION: 1. Biophysical profile score: 8/8. KRISTIN measures 22.5 cm, previously measuring 25.4 cm.
--- NOTE | 2024-04-24 16:12 | DVHDS2 ---
Physician Discharge Progress N Final Diagnosis: IUP AT 36WKS GDM Operations or Procedures: Operations or Procedures NST 36WKS,SONO Condition on Discharge: Good Disposition: Home Discharge Instructions: Diet: Consistent carbohydrate Activity: Light activity Medications: NA Follow Up Care: Specialist: 3D Discharge Statement: "Patient was advised to return to the ER or call 911 if any headaches, dizziness, shortness of breath, chest pain, abdominal pain, bleeding, fevers, or worsening of medical condition. Patient was counseled about treatment plan, medications, possible side effects, patientverbalized understanding. All questions were answered to the best of my ability. This discharge took greater then 30 minutes in planning, reviewing documentation , counseling the patient, and discussing with other team members." Visit Coding OBGYN Date of Service: Apr 24, 2024 Billing Provider: KIMMIE PACK DO CHAR DUST CLEANER AND SALVAGER Common Visit Codes: 53649-UQA/OBS SAME DATE (HIGH) CHAR DUST CLEANER AND SALVAGER Procedure Codes: 47246-24- NON-STRESS TEST KIMMIE PACK DO Apr 24, 2024 16:12
== END 2024-04-24 12:24 | disposition home or self-care (01) ==
LOC: LDRP 10:47
PROVIDERS: ADMIT Obstetrics & Gynecology; ATTEND Obstetrics & Gynecology
DX: O24.419 Gestational diabetes mellitus in pregnancy, unspecified control (principal); Z3A.36 36 weeks gestation of pregnancy; Z79.899 Other long term (current) drug therapy
CPT/HCPCS: 59025; 76818; 81002; 82948; 82962; 94760; G0378

== ENCOUNTER 2024-04-28 06:28 | Observation (INO) | payer MEDICAID ==
--- NOTE | 2024-04-28 09:27 | DVH ---
BIOPHYSICAL PROFILE HISTORY: gdma2 TECHNIQUE: Multiple transabdominal real-time grayscale sonographic images through the gravid uterus of the fetus with duplex Doppler color flow and M-mode spectral analysis Comparison: Ultrasound from 04/24/2024. FINDINGS: BIOPHYSICAL PROFILE: breathing score: 2 movement score: 2 tone score: 2 Quantitative KRISTIN score: 2 (KRISTIN: 21.9 Cm.) Total score: 8/8 The cervix is not visualized. Single live fetus in cephalic presentation. heart rate 148 beats per minute. Anterior placenta without previa or abruption IMPRESSION: 1. Biophysical profile score: 8/8. KRISTIN measures 21.9 cm, previously measuring 22.5 cm.
--- NOTE | 2024-04-28 20:09 | DVHDS2 ---
Physician Discharge Progress N Final Diagnosis: testing for GDM, A2 Operations or Procedures: Operations or Procedures 38yo IUP@37.3wks VSS NST reactive (verified by 2 RNs) FKC/PTL precautions reviewed Dr. Jackman consulted, agrees with POC. Other Interventions Other Interventions [address] [address] Ph: [phone] DIAGNOSTIC IMAGING Diagnostic Imaging Report : [id number] Signed PATIENT: KARISSA DELCID ACCT: [id number] UNIT: [id number] : 1985 LOC: [facility] ROOM / BED: TRIAGE1 / A AGE / SEX: 38 / F ADM STATUS: ADM IN SERVICE 1 ORDERING PHYSICIAN: SETH TINOCO CNM PROCEDURE(s): BPP - BIOPHYSICAL PROFILE REASON: gdma2 ORDER NUMBER(s): [id number], ACCESSION NUMBER(s): [id number] BIOPHYSICAL PROFILE HISTORY: gdma2 TECHNIQUE: Multiple transabdominal real-time grayscale sonographic images through the gravid uterus of the fetus with duplex Doppler color flow and M-mode spectral analysis Comparison: Ultrasound from 04/24/2024. FINDINGS: BIOPHYSICAL PROFILE: breathing score: 2 movement score: 2 tone score: 2 Quantitative KRISTIN score: 2 (KRISTIN: 21.9 Cm.) Total score: 8/8 The cervix is not visualized. Single live fetus in cephalic presentation. heart rate 148 beats per minute. Anterior placenta without previa or abruption IMPRESSION: 1. Biophysical profile score: 8/8. KRISTIN measures 21.9 cm, previously measuring 22.5 cm. ATED BY: FABIANA CORTEZ MD DICTATED DATE/TIME: 04/28/24923 SIGNED BY: FABIANA CORTEZ MD SIGNED DATE/TIME: 04/28/24923 CC: Condition on Discharge: Stable Disposition: Home Discharge Instructions: Diet: Consistent carbohydrate Activity: No Restrictions, As Tolerated Medications: see med list Follow Up Care: Specialist: f/u in 3 days Discharge Statement: "Patient was advised to return to the ER or call 911 if any headaches, dizziness, shortness of breath, chest pain, abdominal pain, bleeding, fevers, or worsening of medical condition. Patient was counseled about treatment plan, medications, possible side effects, patientverbalized understanding. All questions were answered to the best of my ability. This discharge took greater then 30 minutes in planning, reviewing documentation, counseling the patient, and discussing with other team members." Visit Coding OBGYN Date of Service: Apr 28, 2024 Billing Provider: SETH TINOCO CNM MEDICAL LAB SCIENTIST Common Visit Codes: [id number] OBS CARE (HIGH) SETH TINOCO CNM Apr 28, 2024 20:09
[2024-05-05] MEDS ORDERED: DOCU-265 PO (22:47)
[2024-05-05] MEDS ORDERED: IBUP-1455 PO (22:47)
[2024-05-05] MEDS ORDERED: AZIT-185 PO (23:20)
[2024-05-05] MEDS ORDERED: GUAI600T78 PO (23:20)
== END 2024-04-28 09:44 | disposition home or self-care (01) ==
LOC: UNDOADMOB 08:49 → LDRP 08:49 → UNDODISOB 09:44
PROVIDERS: ADMIT Obstetrics & Gynecology; ATTEND Obstetrics & Gynecology
DX: O24.419 Gestational diabetes mellitus in pregnancy, unspecified control (principal); O09.33 Supervision of pregnancy with insufficient antenatal care, third trimester; Z3A.37 37 weeks gestation of pregnancy; Z79.899 Other long term (current) drug therapy
CPT/HCPCS: 59025; 76819; 81002; 82948; 82962; 94760; G0378; 76818

== ENCOUNTER 2024-05-01 07:39 | Observation (INO) | payer MEDICAID ==
--- NOTE | 2024-05-01 10:52 | DVH ---
CLINICAL HISTORY: Gestational diabetes. COMPARISON: US BIOPHYSICAL PROFILE on DOS: 04/28/24, US BIOPHYSICAL PROFILE on DOS: 04/24/24, US BIOPHY SICAL PROFILE on DOS: 04/21/24 TECHNIQUE: biophysical profile was performed. Transabdominal sonographic images of the fetus we re obtained. FINDINGS: The fetus is in cephalic position. heart rate measures 130 BPM. Amniotic fluid index measures 22.2 cm. The placenta is anterior in position. BPP profile is an overall score of 8/8, with 2/2 points for breathing, with at least one episode of breathing over a 30 second duration during a 30 minute observation, 2/2 points for m ovements, with 3 or more discrete body or limb movements, 2/2 points for tone, with one or more episodes of extremity extension with return to flexion, or opening and closing of hand, and 2/ 2 points for amniotic fluid, with at least 1 pocket of amniotic fluid that measures 2 cm in 2 perpend icular planes. IMPRESSION: BPP score of 8/8.
--- NOTE | 2024-05-01 15:26 | DVHDS2 ---
Physician Discharge Progress N Final Diagnosis: GDM Operations or Procedures: Operations or Procedures NST/BPP KRISTIN Condition on Discharge: Stable Disposition: Home Discharge Instructions: Diet: Consistent carbohydrate Activity: No Restrictions, As Tolerated Follow Up/Referral: as scheduled Medications: N/A Follow Up Care: Discharge Statement: "Patient was advised to return to the ER or call 911 if any headaches, dizziness, shortness of breath, chest pain, abdominal pain, bleeding, fevers, or worsening of medical condition. Patient was counseled about treatment plan, medications, possible side effects, patientverbalized understanding. All questions were answered to the best of my ability. This discharge took greater then 30 minutes in planning, reviewing documentation, counseling the patient, and discussing with other team members." Visit Coding OBGYN Date of Service: May 01, 2024 Billing Provider: DANO QUEZADA DO ACADEMY DIRECTOR Common Visit Codes: 83092-UXX/OBS SAME DATE (HIGH) ACADEMY DIRECTOR Procedure Codes: 50534-61- NON-STRESS TEST DANO QUEZADA DO May 01, 2024 15:26
[2024-05-05] MEDS ORDERED: IBUP-1455 PO (22:47)
[2024-05-05] MEDS ORDERED: DOCU-265 PO (22:47)
[2024-05-05] MEDS ORDERED: AZIT-185 PO (23:20)
[2024-05-05] MEDS ORDERED: GUAI600T78 PO (23:20)
== END 2024-05-01 12:05 | disposition home or self-care (01) ==
LOC: LDRP 09:42
PROVIDERS: ADMIT Obstetrics & Gynecology; ATTEND Obstetrics & Gynecology
DX: O24.419 Gestational diabetes mellitus in pregnancy, unspecified control (principal); Z3A.37 37 weeks gestation of pregnancy; Z79.899 Other long term (current) drug therapy; Z98.890 Other specified postprocedural states
CPT/HCPCS: 59025; 76819; 81002; 82948; 82962; G0378; 76818

== ENCOUNTER 2024-05-02 07:42 | Observation (INO) | payer MEDICAID ==
--- NOTE | 2024-05-02 09:04 | DVH ---
CLINICAL HISTORY: decreased movement COMPARISON: US BIOPHYSICAL PROFILE on DOS: 05/01/24, US BIOPHYSICAL PROFILE on DOS: 04/28/24, US BIOPHY SICAL PROFILE on DOS: 04/24/24 TECHNIQUE: biophysical profile was performed. Transabdominal sonographic images of the fetus we re obtained. FINDINGS: The fetus is in cephalic position. heart rate measures 127 BPM. Amniotic fluid index measures 20.8 cm. The placenta is anterior in position. BPP profile is an overall score of 8/8, with 2/2 points for breathing, with at least one episode of breathing over a 30 second duration during a 30 minute observation, 2/2 points for m ovements, with 3 or more discrete body or limb movements, 2/2 points for tone, with one or more episodes of extremity extension with return to flexion, or opening and closing of hand, and 2/ 2 points for amniotic fluid, with at least 1 pocket of amniotic fluid that measures 2 cm in 2 perpend icular planes. IMPRESSION: BPP score of 8/8.
--- NOTE | 2024-05-02 13:03 | DVHDS2 ---
Physician Discharge Progress N Final Diagnosis: gdm,dec movement 38wks Operations or Procedures: Operations or Procedures nst 38 wks,sono Condition on Discharge: Good Disposition: Home Discharge Instructions: Diet: Consistent carbohydrate Activity: No Restrictions, As Tolerated Medications: na Follow Up Care: Specialist: 3d Discharge Statement: "Patient was advised to return to the ER or call 911 if any headaches, dizziness, shortness of breath, chest pain, abdominal pain, bleeding, fevers, or worsening of medical condition. Patient was counseled about treatment plan, medications, possible side effects, patientverbalized understanding. All questions were answered to the best of my ability. This discharge took greater then 30 minutes in planning, reviewing documentation, counseling the patient, and discussing with other team members." Visit Coding OBGYN Date of Service: May 02, 2024 Billing Provider: KIMMIE PACK DO POULTRY PROCESSING SUPERVISOR Common Visit Codes: [id number]-[id number] INP/OBS CARE (HIGH) POULTRY PROCESSING SUPERVISOR Procedure Codes: 06411-93- NON-STRESS TEST KIMMIE PACK DO May 02, 2024 13:03
[2024-05-05] MEDS ORDERED: IBUP-1455 PO (22:47)
[2024-05-05] MEDS ORDERED: DOCU-265 PO (22:47)
[2024-05-05] MEDS ORDERED: GUAI600T78 PO (23:20)
[2024-05-05] MEDS ORDERED: AZIT-185 PO (23:20)
== END 2024-05-02 09:42 | disposition home or self-care (01) ==
LOC: LDRP 07:42
PROVIDERS: ADMIT Obstetrics & Gynecology; ATTEND Obstetrics & Gynecology
DX: O36.8130 Decreased fetal movements, third trimester, not applicable or unspecified (principal); O24.419 Gestational diabetes mellitus in pregnancy, unspecified control; O26.853 Spotting complicating pregnancy, third trimester; Z98.890 Other specified postprocedural states; Z79.899 Other long term (current) drug therapy; Z3A.38 38 weeks gestation of pregnancy
CPT/HCPCS: 76819; 81002; 82948; 82962; 94760; G0378; 59025; 76818

== ENCOUNTER 2024-05-04 19:32 | Observation (INO) | payer MEDICAID ==
--- NOTE | 2024-05-05 03:48 | DVHDS2 ---
Physician Discharge Progress N Final Diagnosis: Term IUP, False labor GDMA2 AMA Operations or Procedures: Operations or Procedures NST Commentary: Commentary Labor check. cx 2cm, thick. Not in active labor No change after observation NST category 1 Condition on Discharge: Stable Disposition: Home Discharge Instructions: Diet: Regular, Consistent carbohydrate Activity: No Restrictions, As Tolerated Follow Up/Referral: Return to birthplace if contractions increase and are regular for 1 hour or SROM Medications: N/A Follow Up Care: Discharge Statement: "Patient was advised to return to the ER or call 911 if any headaches, dizziness, shortness of breath, chest pain, abdominal pain, bleeding, fevers, or worsening of medical condition. Patient was counseled about treatment plan, medications, possible side effects, patientverbalized understanding. All questions were answered to the best of my ability. This discharge took greater then 30 minutes in planning, reviewing doc umentation, counseling the patient, and discussing with other team members." Visit Coding OBGYN Date of Service: May 05, 2024 Billing Provider: DANO QUEZADA DO OBIEE OBIA SOLUTION ARCHITECT Common Visit Codes: 67019-WHE/OBS SAME DATE (MOD) OBIEE OBIA SOLUTION ARCHITECT Procedure Codes: 44640-55- NON-STRESS TEST DANO QUEZADA DO May 05, 2024 03:48
[2024-05-05] MEDS ORDERED: IBUP-1455 PO (22:47)
[2024-05-05] MEDS ORDERED: DOCU-265 PO (22:47)
[2024-05-05] MEDS ORDERED: AZIT-185 PO (23:20)
[2024-05-05] MEDS ORDERED: GUAI600T78 PO (23:20)
== END 2024-05-04 21:29 | disposition home or self-care (01) ==
LOC: LDRP 19:32
PROVIDERS: ADMIT Obstetrics & Gynecology; ATTEND Obstetrics & Gynecology
DX: O47.1 False labor at or after 37 completed weeks of gestation (principal); O24.419 Gestational diabetes mellitus in pregnancy, unspecified control; Z98.890 Other specified postprocedural states; Z79.899 Other long term (current) drug therapy; Z3A.38 38 weeks gestation of pregnancy
CPT/HCPCS: 59025; 81002; G0378

== ENCOUNTER 2024-05-05 01:22 | Inpatient (IN) | payer MEDICAID ==
[~2024-05-05] VITALS: Ht 154.9 cm; Wt 77.6 kg
[2024-05-05] MEDS ORDERED: LIDOCAINE 2%HCL (LOCAL ANESTH.) INJ 20ML MDV IJ PRN (02:00)
[2024-05-05] MEDS: LACTATED RINGER'S 1,000 ML IV SCH (02:00)
--- NOTE | 2024-05-05 02:20 | DVHHP2 ---
OB CC & HPI Date Date of Admission: May 05, 2024 Patient Identification: : 8 Para: 6 EGA: 38.3 Chief Complaints: Reason for admission: active labor History of Present Complaints 38y IUP 38+ wk in active labor, GDMA1 Arrived 5cm dilated, regular contractions. Denies PROM Past Medical History Cardiac: No pertinent Hx Pulmonary: No pertinent Hx Central Nervous System: No pertinent Hx GI: No pertinent Hx Hemotology/Oncology: No pertinent Hx Hepatobiliary: No pertinent Hx Psychiatric: No pertinent Hx Musculoskeletal: No pertinent Hx Rheumotologic: No pertinent Hx Infectious Disease: No peritnent Hx ENT: No pertinent Hx Renal/: No pertinent Hx Endocrine: No pertinent Hx Dermatology: No pertinent Hx Past Surgical History: No pertinent Hx OB History OB History Care: Good Care Ultrasounds: Normal mid trimester US Obstetrical Complications: Gestational Diabetes Allergies: Coded Allergies: NO KNOWN ALLERGIES (Unverified , 07/30/21) Home Meds Active Scripts Nifedipine (PROCARDIA CAPSULE) 10 Mg Cp, 10 MG PO Q6HR for 4 Days, #16 CAP take until [address] Jackman Prov:SETH TINOCO CNM 04/14/24 Reported Medications Metformin Hydrochloride (Metformin Hcl) 500 Mg Tab, 500 MG PO DAILY for 30 Days, MG 03/02/24 Vit W/ Ferrous Fumara ( One Daily) Daily Tab, 1 TAB PO DAILY, #90 TAB 3 Refills 07/07/16 Current Medications Current Medications Medications (Trade) Dose Ordered Sig/Aayn Route PRN Reason Start Time Stop Time Status Last Admin Lactated Ringer's 1,000 ml @ 125 mls/hr Q8H IV 05/05/24 02:00 Raymond Jewell (Tucks) 1 pad PRN PRN TOP PERINEAL AREA DISCOMFORT 05/05/24 02:00 Sodium Lauryl Sulfate (Phisoderm) 240 ml PRN PRN TOP PERINEAL AREA DISCOMFORT 05/05/24 02:00 Benzocaine (Dermoplast) 1 applic PRN PRN TOP PERINEAL AREA DISCOMFORT 05/05/24 02:00 Lidocaine HCl (Xylocaine) 20 ml ONCE PRN IJ PERINEAL AREA DISCOMFORT 05/05/24 02:00 Family & Social History Family/Social History Rubella: immune RPR/VDRL: Negative GBS Status: Negative HBsAG: Negative Review of Systems Constitutional: No symptom reported Ears, Nose, & Throat: No symptom reported Eyes: No symptom reported Pulmonary/Respiratory: No symptom reported Cardiovascular: No symptom reported Gastrointestinal: No symptom reported Genitourinary: No symptom reported Musculoskeletal: No symptom reported Skin: No symptom reported Psychiatric: No symptom reported Endocrine: No symptom reported Hemotologic/Lymphatic: No symptom reported OB Admission Exam Physical Exam HEENT: NCAT Heart: Rhythm Normal Lungs: Clear Abdomen: Gravid Extremities: Normal Reflexes: Normal Cervical Dilatation: 5cm Effacement: Other (90) Station: 0 Membranes: Intact Heart Rate: 130's Accelerations: Accelerations Present Decelerations: No Decelerations Short Term Variability: Present Electricity Trader Variability: Average (6-25) Contractions on Admission: 6-10 Minutes Apart Intensity: Moderate OB Plan Plan Admitting Diagnosis: Active Labor, IUP 38+ wk AMA GBS neg Plan: Expectant Management Other Plan: Admit for labor and delivery anticipated Informed consent obtained. Visit Coding OBGYN Date of Service: May 05, 2024 Billing Provider: DANO QUEZADA DO CPC CODER Common Visit Codes: 97455-VJADXEN OBS CARE (HIGH) DANO QUEZADA DO May 05, 2024 02:20
[2024-05-05 02:30] LABS: Basophils # (auto) 0 10 ^3/uL (0-0.2); Basophils % (auto) 0.3 % (0.0-2.0); Eosinophils # (auto) 0.1 10 ^3/uL (0-0.8); Eosinophils % (auto) 0.6 % (0.0-7.0); Hematocrit 36.2 % (36.0-46.0); Hemoglobin 12.5 g/dL (12.2-16.2); Lymphocytes # (auto) 2.6 10 ^3/uL (0.4-5.4); Lymphocytes % (auto) 20.2 % (10.0-50.0); Mean Corpuscular Hemoglobin 30.1 pg (28.0-32.0); Mean Corpuscular Hgb Conc. 34.4 g/dL (32.0-36.0); Mean Corpuscular Volume 87.5 fL (80.0-100.0); Monocytes # (auto) 0.5 10 ^3/uL (0-1.3); Monocytes % (auto) 3.8 % (0.0-12.0); Neutrophils # (auto) 9.7 10 ^3/uL (1.6-8.6); Neutrophils % (auto) 75.1 % (37.0-80.0); Platelet Count (auto) 288 10^3/uL (140-450); Red Blood Cells 4.14 10^6/uL (4.0-5.20); White Blood Cell 12.9 10^3/uL (4.4-10.8)
[2024-05-05 02:48] LABS: Alanine Aminotransferase 11 U/L (7-40); Albumin 4.2 g/dL (3.2-4.8); Anion Gap 12 (5-15); Aspartate Aminotransferase 16 U/L (13-40); BUN/Creatinine Ratio 14.5 (10.0-20.0); Bilirubin, Total 0.7 mg/dL (0.2-1.0); Calcium 9.6 mg/dL (8.7-10.4); Potassium 3.9 mmol/L (3.5-5.1); Sodium 136 mmol/L (136-145); Total Protein 6.9 g/dL (5.7-8.2)
[2024-05-05 02:51] LABS: INR 0.93 (0.9-1.15); Prothrombin Time 9.9 sec (9.3-11.8)
[2024-05-05 02:52] LABS: Alkaline Phosphatase 212 U/L (46-116); Blood Urea Nitrogen 8 mg/dL (9-23); Carbon Dioxide 16 mmol/L (20-31); Chloride 108 mmol/L (98-107); Glucose 113 mg/dL (74-106)
--- NOTE | 2024-05-05 03:28 | LDN2 ---
Labor and Delivery Note Date 05/05/24 Age 38 8 Para 7 AB 1 EGA Term 38.3 wk Diagnosis Term in active labor AMA GDMA2 GBS negative Vaginal Delivery: VTX Vacuum Assisted: No Placenta: Spontaneous Sex: Female Weight Pending Apgars 3, 7 and 7 Amniotic Fluid: Clear Anesthesia None Episiotomy: No Repaired with N/A EBL 50 mL Labs Laboratory Tests 04/02/16 08:55: Hepatitis B Surface Antigen Negative, Rubella Antibody Positive Blood Bank 10/14/23 18:39: Blood Type O POSITIVE Complications None Comments/Significant Med Cecilia Patient had precipitous labor. upon arrival Baby did not have breathing effort and poor tone at time of delivery. Respiratory team present for support Cord gases obtained, results pending. No nuchal cord Placenta intact, appears grossly WNL Visit Coding OBGYN Date of Service: May 05, 2024 Billing Provider: DANO QUEZADA DO SENIOR C SOFTWARE DEVELOPER Common Visit Codes: 84258-[id number] INP/OBS CARE(HIGH) SENIOR C SOFTWARE DEVELOPER Procedure Codes: 56675-SCGFZ OB CARE,VAG DELIVERY DANO QUEZADA DO May 05, 2024 03:28
[2024-05-05 03:40] LABS: Urine Bacteria None Seen /hpf (None Seen)
[2024-05-05 03:52] LABS: Urine Blood 2+ /uL (Negative); Urine Clarity Clear (Clear); Urine Color Light-Yellow (Yellow); Urine Protein, UAD Negative (Negative); Urine Squamous Epithelial Cell FEW /hpf (<5); Urine Urobilinogen Normal (Negative); Urine WBC 1 /HPF (0-5); Urine pH 6.5 (5.0-9.0)
[2024-05-05] MEDS ORDERED: LACT. RINGERS/OXYTOCIN 20UNITS 500 ML IV ONE ×2 (04:00→04:30)
[2024-05-05] MEDS ORDERED: ONDANSETRON ODT 4 MG TAB PO PRN (04:00)
[2024-05-05 04:04] LABS: Amphetamine Screen, Urine Neg (NEGATIVE); Barbiturate Scree,Urine Neg (NEGATIVE); Cannabinoid Screen, Urine Neg (NEGATIVE); Cocaine Screen, Urine Neg (NEGATIVE); Opiate Scree,Urine Neg (NEGATIVE); Phencyclidine Screen, Urine Neg (NEGATIVE)
[2024-05-05] MEDS: LACT. RINGERS/OXYTOCIN 20UNITS 500 ML IV ONE ×2 (04:20)
[2024-05-05] MEDS: IBUPROFEN 800 MG TAB PO SCH (04:21)
[2024-05-05] MEDS: WITCH HAZEL-GLYCERIN PAD TOP PRN (04:23)
[2024-05-05] MEDS: PHISODERM TOP SOLN 240ML BTL TOP PRN (04:24)
[2024-05-05] MEDS: DERMOPLAST 60ML BOTTLE TOP PRN (04:24)
[2024-05-05 07:00] VITALS: PULSE 137; RESP 18; RESP 40; TEMP 98.7; O2SAT 99
[2024-05-05 11:00] VITALS: PULSE 139; RESP 60; TEMP 98.4; O2SAT 99
[2024-05-05 14:49] VITALS: BP 96/55; PULSE 79; RESP 16; TEMP 98.1; O2SAT 97
[2024-05-05 18:44] LABS: Benzodiazephine Screen, Urine Neg (NEGATIVE)
[2024-05-05 18:45] VITALS: BP 108/59; PULSE 89; RESP 16; RESP 18; TEMP 98.5; O2SAT 98
[2024-05-05] MEDS: DOCUSATE SOD 100 MG CAP PO SCH (22:00)
[2024-05-05] MEDS ORDERED: IBUP-1455 PO ×2 (22:47)
[2024-05-05] MEDS ORDERED: DOCU-265 PO ×2 (22:47)
[2024-05-05] MEDS ORDERED: AZIT-185 PO ×2 (23:20)
[2024-05-05] MEDS ORDERED: GUAI600T78 PO ×2 (23:20)
[2024-05-05 23:30] VITALS: BP 100/62; PULSE 87; RESP 16; TEMP 98.2; O2SAT 97
[2024-05-05] MEDS: guaiFENesin 200 MG/10 ML UD PO PRN (23:31)
[2024-05-05] MEDS: ACETAMINOPHEN 325 MG TAB PO PRN (23:47)
--- NOTE | 2024-05-06 00:14 | DVHPN2 ---
Progress Note Date Seen: May 06, 2024 Subjective S: bleeding is less, eating food without issues, denies lightheaded/dizziness, pain well controlled with oral medications, no concerns with urinating, passing flatus, no BM yet, ambulating well, formula feeding only vital signs Vital Sign Date Time Temp Pulse Resp B/P (MAP) Pulse Ox O2 Delivery O2 Flow Rate FiO2 05/05/24 23:30 98.2 87 16 100/62 (75) 97 98.2 05/05/24 18:45 Room Air Total Intake and Output 05/05/24 05/05/24 05/06/24 15:00 23:00 07:00 Output Total 1195 ml Balance -1195 ml medications Current Medications Medications Dose Ordered Sig/Ayan Route Start Time Stop Time Status Last Admin Dose Admin Lactated Ringer's 1,000 ml @ 125 mls/hr Q8H IV 05/05/24 02:00 05/05/24 02:00 125 MLS/HR Raymond Jewell 1 pad PRN PRN TOP 05/05/24 02:00 05/05/24 04:23 1 PAD Sodium Lauryl Sulfate 240 ml PRN PRN TOP 05/05/24 02:00 05/05/24 04:24 240 ML Benzocaine 1 applic PRN PRN TOP 05/05/24 02:00 05/05/24 04:24 1 APPLIC Lidocaine HCl 20 ml ONCE PRN IJ 05/05/24 02:00 Acetaminophen 650 mg Q4HP PRN PO 05/05/24 04:00 05/05/24 23:47 650 MG Ondansetron HCl 4 mg Q4HPRN PRN PO 05/05/24 04:00 Docusate Sodium 200 mg HS PO 05/05/24 22:00 Ibuprofen 800 mg Q6HR PO 05/05/24 06:00 05/05/24 13:04 800 MG Guaifenesin 200 mg Q6HP PRN PO 05/05/24 23:15 05/05/24 23:31 200 MG laboratory and microbiology Laboratory Tests 05/05/24 02:17 Test 05/05/24 02:17 Range/Units Serum Glucose 113 H 74-106 mg/dL Objective O: VSS Chest: heart sounds normal and lung sounds clear bilaterally Abd: soft, non-tender, fundus at U/firm/midline, active bowel sounds, no rebound or guarding Perineum: intact, no erythema/edema noted Ext: Non-tender, No edema, 2+ BLE DTRs Lochia: minimal See lab results Problems(with codes): (1) Precipitous delivery (2) Intact perineum (3) (normal spontaneous vaginal delivery) Assessment/Plan A: 38yo now PPD#1 s/p Rh+ Rubella Immune Formula feeding P: D/C home today Rx sent to pharmacy precautions and preeclampsia warning signs reviewed F/U with [facility] OB office in 2 weeks Plan discussed with: Patient Visit Coding OBGYN Date of Service: May 06, 2024 Billing Provider: SETH TINOCO CNM SENIOR PEOPLESOFT DEVELOPER Common Visit Codes: [id number] INP/OBS CARE(HIGH) SETH TINOCO CNM May 06, 2024 00:14
--- NOTE | 2024-05-06 00:15 | DVHDS2 ---
Obstetrics Discharge Summary Obstetrics Discharge Summary Date of Admission: May 05, 2024 Date of Discharge: May 06, 2024 Reason For Admission: Onset of Labor Procedures: NST, Mgmt of Obstetrics Compli (GDM, A2) Intrapartum Procedures: Spontaneous vaginal deliv Procedures: Hct/date: (05/06/24), Hgb/date: (05/06/24) Operative Complicat: None Discharge Diagnosis: Term -Delivered Discharge Information: Activity (as tolerated, no heavy lifting and nothing in the vagina for 6 weeks), Diet (Routine), Medications (Rx sent), Instructions (Routine), Discharge to (Home), Accompanied by (family), Discarge date (05/06/24) Visit Coding OBGYN Date of Service: May 06, 2024 Billing Provider: SETH TINOCO CNM MIXING SUPERVISOR Common Visit Codes: 62850-DWF/OBS DISCH DAY <30MIN SETH TINOCO CNM May 06, 2024 00:15
[2024-05-06 03:30] VITALS: BP 92/51; PULSE 75; RESP 16; TEMP 97.9; O2SAT 97
[2024-05-06 07:00] VITALS: BP 110/60; PULSE 83; RESP 16; TEMP 98.1; O2SAT 100
[2024-05-06 08:07] LABS: RPR Non Reactive (Non Reactive)
[2024-05-06 08:50] LABS: Basophils # (auto) 0 10 ^3/uL (0-0.2); Basophils % (auto) 0.1 % (0.0-2.0); Eosinophils # (auto) 0.1 10 ^3/uL (0-0.8); Eosinophils % (auto) 1.3 % (0.0-7.0); Hematocrit 31.5 % (36.0-46.0); Lymphocytes # (auto) 2.2 10 ^3/uL (0.4-5.4); Lymphocytes % (auto) 18.9 % (10.0-50.0); Mean Corpuscular Volume 88.5 fL (80.0-100.0); Monocytes # (auto) 0.3 10 ^3/uL (0-1.3); Monocytes % (auto) 2.6 % (0.0-12.0); Neutrophils # (auto) 8.9 10 ^3/uL (1.6-8.6); Neutrophils % (auto) 77.1 % (37.0-80.0); Platelet Count (auto) 250 10^3/uL (140-450); Red Blood Cells 3.56 10^6/uL (4.0-5.20); White Blood Cell 11.5 10^3/uL (4.4-10.8)
[2024-05-06 11:00] VITALS: BP 113/55; PULSE 90; RESP 17; TEMP 98; O2SAT 99
== END 2024-05-06 17:34 | disposition home or self-care (01) | DRG 560 ==
LOC: LDRP 01:22 → OBSVTOIN 01:55 → LDRP 01:56
PROVIDERS: ADMIT Obstetrics & Gynecology; ATTEND Obstetrics & Gynecology
PROC: 10E0XZZ Delivery of Products of Conception, External Approach (ICD-10-PCS; principal; 2024-05-05)
DX: O24.425 Gestational diabetes mellitus in childbirth, controlled by oral hypoglycemic drugs (principal); Z37.0 Single live birth; R71.0 Precipitous drop in hematocrit; Z3A.38 38 weeks gestation of pregnancy
CPT/HCPCS: 36415; 59025; 59409; 80053; 80307; 81001; 85025; 85610; 85730; 86592; 86780; 86803; 86850; 86900; 86901; 94760; 96360; 96361; 96365; 96366; G0378; J2590